=== PATIENT | male | born 1985 | race Two or more races ===

== ENCOUNTER 2018-07-21 10:31 | Emergency (ER) | payer SELFPAY ==
[~2018-07-21] VITALS: Ht 188 cm; Wt 90.0 kg
[2018-07-21] MEDS ORDERED: HYDROmorphone 2 MG/ML SYRINGE IVP ONE (11:15)
[2018-07-21] MEDS ORDERED: ONDANSETRON HCL 4 MG/2 ML VIAL IVP ONE (11:15)
[2018-07-21] MEDS ORDERED: KETOROLAC TROMETHAMINE 30 MG/ML VIAL IVP ONE (11:15)
[2018-07-21 12:18] VITALS: BP 141/83
== END 2018-07-21 12:39 | disposition home or self-care (01) ==
LOC: EMS 10:32
DX: S43.014A Anterior dislocation of right humerus, initial encounter (principal); W18.39XA Other fall on same level, initial encounter; Y93.89 Activity, other specified; Y92.89 Other specified places as the place of occurrence of the external cause; Y99.8 Other external cause status
CPT/HCPCS: 23650; 73020; 73030; 96374; 96375; 99284; J1170; J1885; J2405